=== PATIENT | male | born 1960 | race Caucasian/White ===

== ENCOUNTER 2025-06-11 10:10 | Outpatient (CLI) | payer MEDICARE, SELFPAY | END 2025-06-11 10:11 | disposition home or self-care (01) | LOC: NFLDREF 06-16 17:51 | PROVIDERS: PCP Family Medicine; Referring Provider Family Medicine; Visit Provider Family Medicine | DX: Z00.00 Encounter for general adult medical examination without abnormal findings (principal); R10.9 Unspecified abdominal pain; N40.0 Benign prostatic hyperplasia without lower urinary tract symptoms; K21.9 Gastro-esophageal reflux disease without esophagitis | CPT/HCPCS: 80053; 87086 ==

== ENCOUNTER 2025-06-18 08:44 | Outpatient (CLI) | payer MEDICARE, SELFPAY ==
--- NOTE | 2025-06-18 09:00 | CRLHL7_ITS ---
For Patients: As a result of the Century Cures Act, medical imaging exams and procedure reports are released immediately into your electronic medical record. You may view this report before your referring provider. If you have questions, please contact your health care provider. Indication: Abdominal pain left lower quadrant Technique: Noncontrast CT abdomen and pelvis Please note that all CT scans at this facility use dose modulation, iterative reconstruction, and/or weight-based dosing when appropriate to reduce radiation dose to as low as reasonably achievable. Comparison: None Findings: The lung bases are clear. No pleural effusion. Hepatic steatosis. Gallbladder normal. Normal spleen. Normal adrenal glands. Pancreas is within normal limits. No hiatal hernia. Atherosclerotic changes. No aneurysm. Prostate calcifications with prostate enlargement. Postop changes of left inguinal hernia repair with ovoid scar tissue containing dystrophic calcifications. The bladder is incompletely distended. No bladder stones. Normal ureters and kidneys. There is no fracture. No bowel obstruction, free air, free fluid or adenopathy. Normal appendix. Impression: No renal, ureteral or bladder stones. Postop changes of left inguinal hernia repair with ovoid scar tissue containing dystrophic calcifications. No evidence of diverticulitis. Please note that all CT scans at this facility use dose modulation, iterative reconstruction, and/or weight-based dosing when appropriate to reduce radiation dose to as low as reasonably achievable. Dictated by Kenn Jain MD @ 06/18/2025 1:09:09 PM (Electronically Signed)
== END 2025-06-18 08:45 | disposition home or self-care (01) ==
LOC: CT 08:45
PROVIDERS: PCP Family Medicine; Visit Provider Family Medicine
DX: R10.9 Unspecified abdominal pain (principal)
CPT/HCPCS: 74176